=== PATIENT | female | born 1940 | race American Indian/Alaskan Native ===

== ENCOUNTER 2021-10-26 09:24 | Emergency (ER) | payer MEDICARE ==
--- NOTE | 2021-10-26 11:04 | XRay Report ---
CHEST 1 VIEW INDICATION: Chest Pain. COMPARISON: None FINDINGS: SUPPORT DEVICES: None. HEART: Within normal limits. LUNGS/PLEURA: No acute air space or interstitial disease. ADDITIONAL FINDINGS: None. IMPRESSION: 1. No acute findings. Signer Name: Corby Galindo MD Signed: 10/26/2021 10:59 AM Workstation Name: [id number]
[2021-10-26] MEDS ORDERED: LIDOCAINE (1%) 10 MG/1 ML VIAL 20 ML MDV INFILTRATI ONE (11:52)
[2021-10-26] MEDS ORDERED: SODIUM CHLORIDE 0.9% 1000 ML 1,000 ML IV ONE (12:00)
[2021-10-26] MEDS ORDERED: ceFAZolin/NS 1 GM/50 ML 1 GM/50 ML BAG IV ONE (12:00)
--- NOTE | 2021-10-26 13:55 | Emergency Department Report ---
ED Psych HPI - General Chief Complaint: Psych Stated Complaint: SUICIDE ATTEMPT Time Seen by Provider: 10/26/21 09:33 Source: family, EMS Mode of arrival: Stretcher Limitations: No Limitations - History of Present Illness Initial Comments: Pt found at home by EMS with bilateral lacerations to wrist with serated kitchen knife. a&ox3. hypotensive. 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 old daughter with heart transplant , and CVAs and was informed yesterday that she wont get financial assitanace any mor so got depressed and tried to end her life by cutting her wirst with kitchen knife Complaint: suicidal ideation, feels depressed -: Sudden, days(s) Associated Psychiatric Symptoms: depression, suicidal ideation Quality: constant Improves With: none Associated Symptoms: denies other symptoms Treatments Prior to Arrival: none If Self Harm: admits thoughts of - Related Data Home Medications Medication Instructions Recorded Confirmed Last Taken Bisoprolol/Hydrochlorothiazide 1 each PO DAILY 10/28/21 10/28/21 Unknown [Bisoprolol-Hctz 2.5-6.25 mg Tb] oxyCODONE /ACETAMINOPHEN [Percocet 1 tab PO BID PRN 10/28/21 10/28/21 Unknown 5/325] Allergies Allergy/AdvReac Type Severity Reaction Status Date / Time No Known Allergies Allergy Unverified 10/26/21 11:17 ED Review of Systems ROS: Stated complaint: SUICIDE ATTEMPT Other details as noted in HPI Comment: All other systems reviewed and negative Constitutional: denies: chills, fever Eyes: denies: eye pain, eye discharge, vision change ENT: denies: ear pain, throat pain Respiratory: denies: cough, shortness of breath, wheezing Cardiovascular: denies: chest pain, palpitations Endocrine: no symptoms reported Gastrointestinal: denies: abdominal pain, nausea, diarrhea Genitourinary: denies: urgency, dysuria, discharge Musculoskeletal: denies: back pain, joint swelling, arthralgia Skin: denies: rash, lesions Neurological: denies: headache, weakness, paresthesias Psychiatric: denies: anxiety, depression Hematological/Lymphatic: denies: easy bleeding, easy bruising ED Past Medical Hx - Past Medical History Previous Medical History?: Yes Hx Hypertension: Yes - Medications Home Medications: Home Medications Medication Instructions Recorded Confirmed Last Taken Type Bisoprolol/Hydrochlorothiazide 1 each PO DAILY 10/28/21 10/28/21 Unknown History [Bisoprolol-Hctz 2.5-6.25 mg Tb] oxyCODONE /ACETAMINOPHEN [Percocet 1 tab PO BID PRN 10/28/21 10/28/21 Unknown History 5/325] ED Physical Exam - General Limitations: No Limitations General appearance: alert, in no apparent distress - Head Head exam: Present: atraumatic, normocephalic - Eye Eye exam: Present: normal appearance - ENT ENT exam: Present: mucous membranes moist - Neck Neck exam: Present: normal inspection - Respiratory Respiratory exam: Present: normal lung sounds bilaterally. Absent: respiratory distress - Cardiovascular Cardiovascular Exam: Present: regular rate, normal rhythm. Absent: systolic murmur, diastolic murmur, rubs, gallop - GI/Abdominal GI/Abdominal exam: Present: soft, normal bowel sounds - Extremities Exam Extremities exam: Present: normal inspection - Expanded Upper Extremity Exam Left Forearm Wrist exam: Present: laceration Right Forearm Wrist exam: Present: laceration - Back Exam Back exam: Present: normal inspection - Neurological Exam Neurological exam: Present: alert, oriented X3 - Psychiatric Psychiatric exam: Present: normal affect, normal mood - Skin Skin exam: Present: warm, dry, intact, normal color. Absent: rash ED Course Vital Signs 10/26/21 10/26/21 10/26/21 09:25 12:08 13:00 Temperature 98.7 F Pulse Rate 126 H 128 H 130 H Respiratory 16 21 17 Rate Blood Pressure 134/88 Blood Pressure 80/50 [Left] O2 Sat by Pulse 100 99 100 Oximetry 10/26/21 10/26/21 10/26/21 14:00 15:00 16:07 Temperature Pulse Rate 131 H 129 H 144 H Respiratory 21 9 L 13 Rate Blood Pressure 131/79 140/98 137/89 Blood Pressure [Left] O2 Sat by Pulse 99 99 99 Oximetry 10/26/21 10/26/21 10/26/21 16:11 17:01 18:01 Temperature Pulse Rate 143 H 127 H Respiratory 16 21 20 Rate Blood Pressure 130/78 114/60 Blood Pressure [Left] O2 Sat by Pulse 98 98 96 Oximetry 10/26/21 10/26/21 10/26/21 19:00 19:01 20:01 Temperature 97.9 F Pulse Rate 135 H 146 H Respiratory 17 12 Rate Blood Pressure 115/71 102/69 Blood Pressure [Left] O2 Sat by Pulse 99 99 Oximetry 10/26/21 10/26/21 10/26/21 21:01 22:01 23:01 Temperature Pulse Rate 128 H 133 H 153 H Respiratory 23 21 30 H Rate Blood Pressure 104/64 131/93 131/71 Blood Pressure [Left] O2 Sat by Pulse 96 Oximetry 10/26/21 10/27/21 10/27/21 23:19 00:01 01:01 Temperature Pulse Rate 125 H 123 H Respiratory 16 20 Rate Blood Pressure 131/71 133/81 130/68 Blood Pressure [Left] O2 Sat by Pulse 97 97 93 Oximetry 10/27/21 10/27/21 10/27/21 02:01 03:01 04:01 Temperature Pulse Rate 121 H 129 H 115 H Respiratory 26 H 16 21 Rate Blood Pressure 121/77 118/69 113/71 Blood Pressure [Left] O2 Sat by Pulse 97 98 97 Oximetry 10/27/21 10/27/21 10/27/21 05:00 06:01 07:00 Temperature 98.2 F Pulse Rate 123 H 110 H 134 H Respiratory 17 20 17 Rate Blood Pressure 125/83 110/60 110/60 Blood Pressure [Left] O2 Sat by Pulse 97 98 99 Oximetry 10/27/21 10/27/21 10/27/21 08:00 09:00 10:00 Temperature Pulse Rate 124 H 121 H 118 H Respiratory 18 21 16 Rate Blood Pressure 130/82 172/83 151/88 Blood Pressure [Left] O2 Sat by Pulse 99 99 99 Oximetry 10/27/21 10/27/21 10/27/21 11:00 12:00 13:00 Temperature Pulse Rate 112 H 111 H 98 H Respiratory 20 13 15 Rate Blood Pressure 151/77 182/112 140/74 Blood Pressure [Left] O2 Sat by Pulse 99 100 99 Oximetry 10/27/21 10/27/21 10/27/21 14:00 20:32 20:35 Temperature 98.2 F Pulse Rate 89 101 H Respiratory 17 20 Rate Blood Pressure 156/80 Blood Pressure 152/86 [Left] O2 Sat by Pulse 100 99 99 Oximetry - Reevaluation(s) Reevaluation #1: 10/26/21 13:54 pt Bp imrpoved, lac repaired , tetnaus and abx given , will et her psych assessment for SI and suicidal attempt - Laceration /Wound Repair Right Wrist Wound Location: upper extremity Wound Length (cm): 4 Wound's Depth, Shape: superficial, linear Wound Explored: clean Betadine Prep?: Yes Anesthesia: 1% Lidocaine Volume Anesthetic (ccs): 5 Wound Debrided: minimal Wound Repaired With: sutures Suture Size/Type: 5:0 Number of Sutures: 8 Layer Closure?: Yes Deep Layer Suture Size/Type: 5:0 Number Deep Layer Sutures: 4 Sterile Dressing Applied?: Yes Left Wrist Wound Location: upper extremity Wound Length (cm): 5 Wound's Depth, Shape: linear Wound Explored: clean Irrigated w/ Saline (ccs): 4 Anesthesia: 1% Lidocaine Volume Anesthetic (ccs): 5 Wound Debrided: minimal Wound Repaired With: sutures Suture Size/Type: 5:0 Number of Sutures: 8 Layer Closure?: No Sterile Dressing Applied?: No ED Medical Decision Making - Lab Data Result diagrams: 10/26/21 14:35 10/26/21 14:35 Critical care attestation.: If time is entered above; I have spent that time in minutes in the direct care of this critically ill patient, excluding procedure time. ED Disposition Clinical Impression: Suicide attempt, Wrist laceration Disposition: [facility] Is pt being admited?: No Does the pt Need Aspirin: No Condition: Stable Instructions: Wound Infection Referrals: MIGEL PRINCE MD [Primary Care Provider] - 3-5 Days
[2021-10-26 14:52] LABS: Basophils % (Auto) 0.5 % (0.0-1.8); Hemoglobin 9.9 gm/dl (10.1-14.3); Lymphocytes # (Auto) 1.2 K/mm3 (1.2-5.4); Lymphocytes % (Auto) 11.9 % (13.4-35.0); Mean Corpuscular HGB Conc 32 % (30-34); Mean Corpuscular Volume 85 fl (79-97); Monocytes # (Auto) 0.6 K/mm3 (0.0-0.8); Monocytes % (Auto) 5.9 % (0.0-7.3); Platelet Count 272 K/mm3 (140-440); Red Blood Count 3.67 M/mm3 (3.65-5.03)
[2021-10-26 15:19] LABS: Alanine Aminotransferase 17 units/L (7-56); Albumin 3.6 g/dL (3.9-5); BUN/Creatinine Ratio 16; Blood Urea Nitrogen 16 mg/dL (7-17); Calcium 9.2 mg/dL (8.4-10.2); Hemolysis Index 7
[2021-10-26 22:12] LABS: Amphetamine Screen,Urine Negative; Benzodiazepines Screen,Urine Negative; Cannabinoid Screen,Urine Negative; Cocaine Screen,Urine Negative; Methadone Screen,Urine Negative; Opiate Screen,Urine Negative
[2021-10-26 22:32] LABS: Bilirubin,Urine Small (Negative); Blood,Urine Negative (Negative); Color,Urine Dark Yellow (Yellow)
[2021-10-26 22:33] LABS: Urobilinogen,Urine < 2.0 mg/dL (<2.0)
[2021-10-26 22:35] LABS: Ictotest,Urine Negative (Negative); RBC,Urine < 1.0 /HPF (0.0-6.0)
[2021-10-26 22:36] LABS: WBC,Urine < 1.0 /HPF (0.0-6.0)
[2021-10-27] MEDS ORDERED: SODIUM CHLORIDE 0.9% 1000 ML 2,000 ML ONE (01:22)
[2021-10-27] MEDS ORDERED: MELATONIN 5 MG TAB PO PRN (01:34)
[2021-10-27] MEDS ORDERED: SODIUM CHLORIDE 0.9% 1000 ML 2,000 ML IV ONE (01:34)
--- NOTE | 2021-10-27 09:54 | Electrocardiograph Report ---
[facility] Test Date: 2021-10-26 Test Time: 09:47:16 Pat Name: ERICA SHEEHAN Department: Room: Gender: F Survey Analyst: SIRI : 1940 Requested By: OLIVIA SIMS Order Number: [id number] Reading MD: Berny Gates Measurements Intervals [place] Rate: 117 P: 52 WA: 144 QRS: -11 QRSD: 90 T: 45 QT: 354 QTc: 495 Interpretive Statements Sinus tachycardia No previous ECG available for comparison Electronically Signed On 10-27-2021 9:54:09 EST by Berny Gates
--- NOTE | 2021-10-27 15:53 | Event Note ---
Patient is medically clear for psychiatric care. Awaiting insurance approval for admission to [facility].
[2021-10-27 20:34] VITALS: BP 152/86
== END 2021-10-27 23:57 ==
LOC: ED 09:24 → EEVIPCON 09:24 → ED 10-27 23:57
DX: S61.512A Laceration without foreign body of left wrist, initial encounter (principal); S61.511A Laceration without foreign body of right wrist, initial encounter; I10 Essential (primary) hypertension; Z20.822 Contact with and (suspected) exposure to COVID-19; X78.1XXA Intentional self-harm by knife, initial encounter; Y93.89 Activity, other specified; Y92.89 Other specified places as the place of occurrence of the external cause; Y99.8 Other external cause status
CPT/HCPCS: 36415; 71045; 80053; 80307; 81001; 83690; 84484; 85025; 85610; 93005; 93010; 96361; 96365; 96374; 99285; J3490; Q0162; J0690; J7030; U0003